=== PATIENT | male | born 1980 | race Caucasian/White ===

== ENCOUNTER 2019-06-11 09:01 | Emergency (ER) | payer SELFPAY ==
[~2019-06-11] VITALS: Ht 180.3 cm; Wt 109.1 kg
[~2019-06-11 09:01] MED LIST: MOTRIN50 MG; MUSCLE RELAXER; NORCO 325 MG-51 TAB PO
[2019-06-11 09:32] LABS: BASO % 0.3 % (0.0-2.0); EOS % 0.1 % (0-4.0); GRAN # 9.2 (1.4-6.5); GRAN % 75.7 % (42.2-75.2); HEMOGLOBIN 17.1 g/dl (13.5-18.0); LYMPH # 2.1 (1.2-3.4); LYMPH % 17.6 % (20.0-51.0); MEAN CELL VOLUME 84 fl (80.0-100.0); MEAN CORPUSCULAR HEMOGLOBIN 29 pg (27.0-31.0); MEAN CORPUSCULAR HGB CONC 34 g/dl (33.0-37.0); MEAN PLATELET VOLUME 9.9 fl (7.4-10.4); MONO # 0.7 (0.1-0.6); MONO % 5.6 % (1.7-9.3); PLATELET COUNT 188 K/mm3 (130-400); RED BLOOD COUNT 5.98 M/mm3 (4.20-5.60); REDCELL DISTRIBUTION WIDTH-CV 12.5 % (11.5-14.5)
[2019-06-11 09:45] LABS: ALANINE AMINOTRANSFERASE 63 U/L (21-72); ALBUMIN 4.6 gm/dL (3.5-5.0); ALKALINE PHOSPHATASE 94 U/L (50-136); ANION GAP 9 mmol/L (7-16); AST,SGOT 33 U/L (15-37); BILIRUBIN,TOTAL 0.5 mg/dL (0.0-1.0); BLOOD UREA NITROGEN 16 mg/dL (9-20); C-REACTIVE PROTEIN < 0.5 mg/dL (0.0-0.9); CALCIUM 9.4 mg/dL (8.4-10.2); CARBON DIOXIDE 25 mmol/L (22-30); CHLORIDE 105 mmol/L (98-107); CREATININE, serum 1.21 (0.66-1.25); GLUCOSE 122 mg/dL (74-106); LIPASE 87 U/L (23-300); POTASSIUM 3.8 mmol/L (3.4-5.0); SODIUM 139 mmol/L (137-145); TOTAL PROTEIN 7.9 gm/dL (6.4-8.2)
[2019-06-11] MEDS ORDERED: NORCO 325 MG-51 TAB PO (12:52)
[2019-06-11] MEDS ORDERED: ZOFRAN ODT4 MG PO (12:52)
[2019-06-11 14:12] LABS: COLLECTION METHOD CLEAN CATCH
[2019-06-11 14:22] LABS: MUCOUS Present /lpf; PH 6 (5-8); SQUAMOUS EPITHELIAL 0-2 /hpf; URINE APPEARANCE Clear; URINE BACTERIA None Seen /hpf; URINE BILIRUBIN Negative (NEGATIVE); URINE BLOOD 3+ (NEGATIVE); URINE COLOR Yellow; URINE GLUCOSE Negative (NEGATIVE); URINE KETONE Negative (NEGATIVE); URINE LEUKOCYTE ESTERASE Negative (NEGATIVE); URINE NITRATE Negative (NEGATIVE); URINE PROTEIN(semi-quant) Negative (NEGATIVE); URINE RBC >50 /hpf; URINE UROBILINOGEN Negative (NEGATIVE)
[2019-06-11 14:42] VITALS: BP 130/85; PULSE 86; TEMP 98.3
== END 2019-06-11 14:53 | disposition home or self-care (01) ==
LOC: COL.ER 09:01
PROVIDERS: Emergency Medicine
DX: N20.0 Calculus of kidney (principal)
CPT/HCPCS: J1170; J1885; J2405; J7030; Q9967